=== PATIENT | female | born 1990 | race Caucasian/White ===

== ENCOUNTER 2016-11-11 22:44 | Emergency (ER) | payer OTHER ==
[~2016-11-11] VITALS: Ht 175.2 cm; Wt 83.9 kg
[~2016-11-11 22:44] MED LIST: ADDERALL5 MG PO; ANAPROX DS550 MG PO; ATARAX,VISTARIL10 MG PO; AVPAK AZITHROM250 M1 PO; BACTRIM DS 8001 TA1 PO; BUSPIRONE HCL7.5 MG PO; CIPRO250 MG PO; CIPRO500 MG PO; CIPROFLOXACIN500 MG PO; CLARITIN10 MG PO; CLINDAMYCIN HC300 MG PO; CYCLOBENZAPRINE5 M3 PO; DARVOCET N 1001 TAB PO; DOXYCYCLINE HY100 M3 PO; DOXYCYCLINE MO100 MG PO; DOXYCYCLINE100 M3 PO; EES400 MG PO; FLAGYL500 MG PO; FLONASE ALLERG9.9 ML NAS; HYDROCODON-ACE1 EACH PO; HYDROCODONE BIT1 T11 PO; IBUPROFEN600 MG PO; KLONOPIN1 M1 PO; LIDOCAINE VISC100 ML MM; MACROBID100 M1 PO; MULTIPLE VITAMI1 CAP PO; Motrin,Rufen800 MG PO; NAPROSYN500 MG PO; NORCO 5-325 TA1 EACH PO; OLANZAPINE15 M2 PO; PERCOCET 325 MG1 TA2 PO; PHENERGAN25 M1 PO; PHENERGAN25 M3 PO; PREDNISONE10 MG PO; PROTONIX40 MG PO; Peridex 473 ML473 ML PO; ROBITUSSIN AC 110 ML PO; SERTRALINE HYD100 MG PO; SERTRALINE HYDR50 MG PO; TRAMADOL HCL50 MG PO; TRAZODONE50 MG PO; ULTRAM50 MG PO; VALIUM2 MG PO; ZITHROMAX500 MG PO; ZOLOFT25 MG PO; ZYPREXA5 M1 PO
[2016-11-11] MEDS ORDERED: FLUCONAZOLE100 MG PO (22:59)
[2016-11-12] MEDS ORDERED: ULTRAM50 MG PO (00:11)
[2016-11-12] MEDS ORDERED: ZITHROMAX250 MG PO (00:11)
[2016-11-12] MEDS ORDERED: PREDNISONE20 M1 PO (00:15)
== END 2016-11-12 00:25 | disposition home or self-care (01) ==
LOC: ED 22:44
DX: B37.0 Candidal stomatitis (principal); R13.10 Dysphagia, unspecified; J02.9 Acute pharyngitis, unspecified; F17.200 Nicotine dependence, unspecified, uncomplicated; G89.29 Other chronic pain; R10.2 Pelvic and perineal pain; Z98.890 Other specified postprocedural states; Z90.89 Acquired absence of other organs; Z88.0 Allergy status to penicillin

== ENCOUNTER 2017-03-02 14:14 | Emergency (ER) | payer OTHER ==
[~2017-03-02] VITALS: Wt 84.8 kg
[~2017-03-02 14:14] MED LIST changes: +FLUCONAZOLE100 MG PO; +PREDNISONE20 M1 PO; +ZITHROMAX250 MG PO
[2017-03-02 15:38] LABS: BILIRUBIN NEGATIVE (NEGATIVE); BLOOD NEGATIVE (NEGATIVE); CLARITY CLEAR (CLEAR); COLOR YELLOW (YELLOW); GLUCOSE NEGATIVE (NEGATIVE); KETONE NEGATIVE (NEGATIVE); LEUKO ESTERASE 2+ (NEGATIVE); NITRITE NEGATIVE (NEGATIVE); PH 6.5 (5.0-9.0); PROTEIN NEGATIVE (NEGATIVE); UROBILINOGEN 0.2 E.U./dl (0.2-1.0)
[2017-03-02 16:03] LABS: RBC 0-2 rbc/hpf (0-2)
[2017-03-02 16:04] LABS: BACTERIA 2+; MUCOUS TRACE
[2017-03-02] MEDS ORDERED: CIPRO500 MG PO (16:29)
[2017-03-02] MEDS ORDERED: FLUCONAZOLE100 MG PO (16:29)
[2017-03-04 06:12] LABS: GONOCOCCUS BY NAA Negative (Negative); TRICHOMONAS VAGINALIS BY NAA Positive (Negative)
== END 2017-03-02 17:19 | disposition home or self-care (01) ==
LOC: ED 14:14
PROVIDERS: Registered Nurse
DX: N30.00 Acute cystitis without hematuria (principal); Z20.2 Contact with and (suspected) exposure to infections with a predominantly sexual mode of transmission; F17.200 Nicotine dependence, unspecified, uncomplicated; Z88.0 Allergy status to penicillin

== ENCOUNTER 2017-05-07 11:11 | Emergency (ER) | payer OTHER ==
[~2017-05-07] VITALS: Ht 175.2 cm; Wt 88.9 kg
[2017-05-07 12:09] LABS: BILIRUBIN NEGATIVE (NEGATIVE); BLOOD NEGATIVE (NEGATIVE); CLARITY CLEAR (CLEAR); COLOR YELLOW (YELLOW); GLUCOSE NEGATIVE (NEGATIVE); KETONE NEGATIVE (NEGATIVE); LEUKO ESTERASE NEGATIVE (NEGATIVE); NITRITE NEGATIVE (NEGATIVE); UROBILINOGEN 0.2 E.U./dl (0.2-1.0)
[2017-05-07 12:27] LABS: BACTERIA TRACE
[2017-05-07] MEDS ORDERED: Peridex 473 ML473 ML PO (12:44)
[2017-05-07] MEDS ORDERED: NAPROSYN500 MG PO (12:44)
== END 2017-05-07 13:31 | disposition home or self-care (01) ==
LOC: ED 11:11
PROVIDERS: Nurse Practitioner Family
DX: K08.89 Other specified disorders of teeth and supporting structures (principal); R30.0 Dysuria; R03.0 Elevated blood-pressure reading, without diagnosis of hypertension; F17.200 Nicotine dependence, unspecified, uncomplicated; Z88.0 Allergy status to penicillin

== ENCOUNTER 2017-06-24 14:49 | Emergency (ER) | payer OTHER ==
[~2017-06-24] VITALS: Ht 175.2 cm; Wt 104.3 kg
[2017-06-24] MEDS ORDERED: MEDROL DOSEPAK4 MG PO (16:13)
[2017-06-24] MEDS ORDERED: ROBAXIN500 M1 PO (16:13)
== END 2017-06-24 16:28 | disposition home or self-care (01) ==
LOC: ED 14:49
DX: M54.16 Radiculopathy, lumbar region (principal); F17.200 Nicotine dependence, unspecified, uncomplicated; Z88.0 Allergy status to penicillin

== ENCOUNTER 2017-08-07 20:04 | Emergency (ER) | payer OTHER ==
[~2017-08-07] VITALS: Ht 175.2 cm; Wt 105.7 kg
[~2017-08-07 20:04] MED LIST changes: +MEDROL DOSEPAK4 MG PO; +ROBAXIN500 M1 PO
[2017-08-07] MEDS ORDERED: ADDERALL XR 3030 MG PO (20:14)
[2017-08-07] MEDS ORDERED: DIAZEPAM10 M1 PO (20:15)
[2017-08-07] MEDS ORDERED: KETOROLAC10 MG PO (21:14)
[2017-08-07] MEDS ORDERED: Orphenadrine C100 MG PO (21:14)
== END 2017-08-07 21:41 | disposition home or self-care (01) ==
LOC: ED 20:04
DX: M75.102 Unspecified rotator cuff tear or rupture of left shoulder, not specified as traumatic (principal); F17.200 Nicotine dependence, unspecified, uncomplicated; Z79.899 Other long term (current) drug therapy; Z88.0 Allergy status to penicillin; Z91.041 Radiographic dye allergy status

== ENCOUNTER 2017-09-21 15:08 | Emergency (ER) | payer OTHER ==
[~2017-09-21] VITALS: Ht 175.2 cm; Wt 89.8 kg
[~2017-09-21 15:08] MED LIST changes: +ADDERALL XR 3030 MG PO; +DIAZEPAM10 M1 PO; +KETOROLAC10 MG PO; +Orphenadrine C100 MG PO
[2017-09-21 15:36] LABS: BILIRUBIN NEGATIVE (NEGATIVE); BLOOD 2+ (NEGATIVE); CLARITY CLEAR (CLEAR); COLOR YELLOW (YELLOW); GLUCOSE NEGATIVE (NEGATIVE); KETONE TRACE (NEGATIVE); LEUKO ESTERASE NEGATIVE (NEGATIVE); NITRITE NEGATIVE (NEGATIVE); PH 5.5 (5.0-9.0); SPECIFIC GRAVITY 1.025 (1.005-1.030); UROBILINOGEN 0.2 E.U./dl (0.2-1.0)
[2017-09-21 15:44] LABS: BASO # 0.1 10*3/uL (0.0-0.1); BASO % 0.7 % (0.0-1.0); EOS # 0.3 10*3/uL (0.0-0.4); HEMATOCRIT 44.5 % (37.0-47.0); HEMOGLOBIN 14.4 g/dl (12.0-16.0); LYMPH # 1.6 10*3/uL (1.3-4.4); LYMPH % 20.2 % (27.0-41.0); MEAN CELL VOLUME 82.1 fl (81.0-99.0); MEAN CORPUSCULAR HGB 26.6 pg (27.0-31.0); MEAN CORPUSCULAR HGB CONC 32.4 g/dl (33.0-37.0); MEAN PLATELET VOLUME 9.3 fl (9.6-12.3); MONO # 0.5 10*3/uL (0.1-1.0); MONO % 5.6 % (3.0-9.0); NEUT # 5.5 10*3/uL (2.3-7.9); NEUT % 69.1 % (47.0-73.0); PLATELET COUNT AUTOMATED 227 10*3/uL (130-400); RED BLOOD COUNT 5.42 10*6/uL (4.10-5.10); RED CELL DISTRI WIDTH 14.5 % (0-14.5)
[2017-09-21 15:47] LABS: BACTERIA 1+; URIC ACID CRYSTALS TR; WBC 0-2 wbc/hpf (0-5)
[2017-09-21 15:54] LABS: ALBUMIN 3.7 gm/dl (3.1-4.5); ALKALINE PHOSPHATASE 122 U/L (45-117); BUN 8 mg/dl (7-24); CHLORIDE 107 mmol/L (98-107); CREATININE 0.83 mg/dL (0.55-1.02); SGOT/AST 23 IU/L (3-35); SGPT/ALT 59 U/L (12-78); SODIUM 141 mmol/L (136-145); TOTAL PROTEIN 7.4 gm/dL (6.4-8.2)
== END 2017-09-21 16:53 | disposition home or self-care (01) ==
LOC: ED 15:08
PROVIDERS: Physician Assistant
DX: N93.9 Abnormal uterine and vaginal bleeding, unspecified (principal); F17.200 Nicotine dependence, unspecified, uncomplicated; Z88.0 Allergy status to penicillin; Z79.899 Other long term (current) drug therapy

== ENCOUNTER 2017-11-30 12:19 | Emergency (ER) | payer OTHER ==
[~2017-11-30] VITALS: Ht 175.2 cm; Wt 109.8 kg
[2017-11-30 12:45] LABS: BASO % 0.4 % (0.0-1.0); EOS # 0.3 10*3/uL (0.0-0.4); EOS % 3.4 % (1.0-4.0); HEMATOCRIT 42.2 % (37.0-47.0); HEMOGLOBIN 13.5 g/dl (12.0-16.0); LYMPH # 1.7 10*3/uL (1.3-4.4); LYMPH % 18.6 % (27.0-41.0); MEAN CELL VOLUME 82.1 fl (81.0-99.0); MEAN CORPUSCULAR HGB 26.3 pg (27.0-31.0); MEAN PLATELET VOLUME 9.3 fl (9.6-12.3); MONO # 0.5 10*3/uL (0.1-1.0); MONO % 5.4 % (3.0-9.0); NEUT # 6.5 10*3/uL (2.3-7.9); NEUT % 71.8 % (47.0-73.0); PLATELET COUNT AUTOMATED 243 10*3/uL (130-400); RED BLOOD COUNT 5.14 10*6/uL (4.10-5.10); RED CELL DISTRI WIDTH 14.2 % (0-14.5); WHITE BLOOD COUNT 9.1 10*3/uL (4.8-10.8)
[2017-11-30 13:00] LABS: ALBUMIN 3.6 gm/dl (3.1-4.5); ALKALINE PHOSPHATASE 125 U/L (45-117); BUN 11 mg/dl (7-24); CHLORIDE 104 mmol/L (98-107); CREATININE 0.78 mg/dL (0.55-1.02); LIPASE 102 U/L (73-393); POTASSIUM 3.9 mmol/L (3.5-5.1); SGOT/AST 44 IU/L (3-35); SGPT/ALT 82 U/L (12-78); SODIUM 139 mmol/L (136-145); TOTAL PROTEIN 7.3 gm/dL (6.4-8.2)
[2017-11-30 13:02] LABS: B-hCG (QUALITATIVE) NEGATIVE (NEGATIVE)
== END 2017-11-30 13:30 | disposition home or self-care (01) ==
LOC: ED 12:19
PROVIDERS: Emergency Medicine
DX: R74.0 Nonspecific elevation of levels of transaminase and lactic acid dehydrogenase [LDH] (principal); R10.31 Right lower quadrant pain; R11.10 Vomiting, unspecified; R10.32 Left lower quadrant pain; Z88.0 Allergy status to penicillin; Z79.899 Other long term (current) drug therapy

== ENCOUNTER 2018-02-23 18:59 | Emergency (ER) | payer OTHER ==
[~2018-02-23] VITALS: Ht 175.2 cm; Wt 107.0 kg
[2018-02-23 19:31] LABS: BASO % 0.4 % (0.0-1.0); EOS # 0.4 10*3/uL (0.0-0.4); EOS % 3.3 % (1.0-4.0); HEMATOCRIT 44.4 % (37.0-47.0); HEMOGLOBIN 14.1 g/dl (12.0-16.0); LYMPH # 1.8 10*3/uL (1.3-4.4); LYMPH % 16.6 % (27.0-41.0); MEAN CELL VOLUME 81.6 fl (81.0-99.0); MEAN CORPUSCULAR HGB 25.9 pg (27.0-31.0); MEAN CORPUSCULAR HGB CONC 31.8 g/dl (33.0-37.0); MEAN PLATELET VOLUME 9.1 fl (9.6-12.3); MONO # 0.6 10*3/uL (0.1-1.0); MONO % 5.5 % (3.0-9.0); NEUT # 7.9 10*3/uL (2.3-7.9); NEUT % 73.8 % (47.0-73.0); PLATELET COUNT AUTOMATED 239 10*3/uL (130-400); RED BLOOD COUNT 5.44 10*6/uL (4.10-5.10); RED CELL DISTRI WIDTH 14.3 % (0-14.5); WHITE BLOOD COUNT 10.7 10*3/uL (4.8-10.8)
[2018-02-23 19:47] LABS: ALBUMIN 3.9 gm/dl (3.1-4.5); ALKALINE PHOSPHATASE 131 U/L (45-117); BUN 11 mg/dl (7-24); CHLORIDE 107 mmol/L (98-107); CREATININE 0.72 mg/dL (0.55-1.02); POTASSIUM 4.2 mmol/L (3.5-5.1); SGOT/AST 53 IU/L (3-35); SGPT/ALT 125 U/L (12-78); SODIUM 139 mmol/L (136-145); TOTAL PROTEIN 7.6 gm/dL (6.4-8.2)
[2018-03-20] MEDS ORDERED: DIFLUCAN150 MG PO (11:33)
== END 2018-02-23 20:45 | disposition home or self-care (01) ==
LOC: ED 18:59
PROVIDERS: Student in an Organized Health Care Education/Training Program
DX: R51 Headache (principal); R42 Dizziness and giddiness; R11.0 Nausea; R63.0 Anorexia; F17.210 Nicotine dependence, cigarettes, uncomplicated; Z88.0 Allergy status to penicillin; Z79.899 Other long term (current) drug therapy

== ENCOUNTER 2019-08-30 20:09 | Emergency (ER) | payer SELFPAY ==
[~2019-08-30] VITALS: Ht 175.2 cm; Wt 114.3 kg
[~2019-08-30 20:09] MED LIST changes: +DIFLUCAN150 MG PO
[2019-08-30] MEDS ORDERED: PREDNISONE20 M1 PO (21:32)
[2019-08-30] MEDS ORDERED: ZITHROMAX250 MG PO (21:32)
== END 2019-08-30 21:34 | disposition home or self-care (01) ==
LOC: ED 20:09
DX: J40 Bronchitis, not specified as acute or chronic (principal); R11.2 Nausea with vomiting, unspecified; Z88.0 Allergy status to penicillin; Z79.899 Other long term (current) drug therapy

== ENCOUNTER 2023-12-20 23:38 | Emergency (ER) | payer OTHER ==
[~2023-12-20] VITALS: Ht 162.5 cm; Wt 108.9 kg
[2023-12-21] MEDS ORDERED: SODIUM CHLORIDE 0.9% 1,000 ML IV ONE (00:25)
[2023-12-21] MEDS ORDERED: Ondansetron Hydrochloride 4 MG/2 ML VIAL IV ONE (00:25)
[2023-12-21] MEDS ORDERED: Meclizine Hydrochloride 25 MG TAB PO ONE (00:25)
[2023-12-21] MEDS ORDERED: Ketorolac Tromethamine 30 MG/ML VIAL IV ONE (01:55)
[2023-12-21] MEDS ORDERED: MEDI-MECLIZINE25 MG PO (03:23)
== END 2023-12-21 03:31 | disposition home or self-care (01) ==
LOC: ED 23:38
DX: R42 Dizziness and giddiness (principal); H53.8 Other visual disturbances; F90.9 Attention-deficit hyperactivity disorder, unspecified type; F32.A Depression, unspecified; Z88.0 Allergy status to penicillin; Z91.041 Radiographic dye allergy status; Z98.890 Other specified postprocedural states; Z90.49 Acquired absence of other specified parts of digestive tract

== ENCOUNTER 2024-05-11 16:42 | Emergency (ER) | payer OTHER ==
[~2024-05-11] VITALS: Wt 113.4 kg
[~2024-05-11 16:42] MED LIST changes: +MEDI-MECLIZINE25 MG PO
[2024-05-11] MEDS ORDERED: diphenhydrAMINE hydrochloride 50 MG/ML VIAL IV ONE (17:55)
[2024-05-11] MEDS ORDERED: Ondansetron Hydrochloride 4 MG/2 ML VIAL IV ONE (17:55)
[2024-05-11] MEDS ORDERED: Ketorolac Tromethamine 30 MG/ML VIAL IV ONE (17:55)
[2024-05-11] MEDS ORDERED: Dexamethasone Sodium Phospha 20 MG/5 ML VIAL IV ONE (19:50)
[2024-05-11] MEDS ORDERED: Motrin,Rufen800 MG PO (20:18)
== END 2024-05-11 20:33 | disposition home or self-care (01) ==
LOC: ED 16:42
DX: G43.909 Migraine, unspecified, not intractable, without status migrainosus (principal); F32.A Depression, unspecified; F90.9 Attention-deficit hyperactivity disorder, unspecified type; R11.0 Nausea; Z88.0 Allergy status to penicillin; Z91.041 Radiographic dye allergy status; Z98.890 Other specified postprocedural states; Z90.49 Acquired absence of other specified parts of digestive tract

== ENCOUNTER 2024-10-10 20:01 | Emergency (ER) | payer OTHER ==
[~2024-10-10] VITALS: Wt 108.9 kg
[2024-10-10] MEDS ORDERED: methylPREDNISolone sod succ 125 MG VIAL IM ONE (20:15)
[2024-10-10] MEDS ORDERED: MEDROL DOSEPAK4 MG PO (22:05)
== END 2024-10-10 22:38 | disposition home or self-care (01) ==
LOC: ED 20:01
DX: J06.9 Acute upper respiratory infection, unspecified (principal); R07.81 Pleurodynia; Z20.822 Contact with and (suspected) exposure to COVID-19; F90.9 Attention-deficit hyperactivity disorder, unspecified type; F32.A Depression, unspecified; Z88.0 Allergy status to penicillin; Z91.041 Radiographic dye allergy status; Z98.890 Other specified postprocedural states; Z90.49 Acquired absence of other specified parts of digestive tract

== ENCOUNTER → 2024-11-07 | Outpatient (CLI) | payer OTHER ==
[2024-11-07 10:12] LABS: HEMATOCRIT 46.4 % (37.0-47.0); MEAN CELL VOLUME 83.3 fl (81.0-99.0); MEAN CORPUSCULAR HGB CONC 31.3 g/dl (33.0-37.0); MEAN PLATELET VOLUME 8.8 fl (9.6-12.3); RED BLOOD COUNT 5.57 10*6/uL (4.10-5.10); RED CELL DISTRI WIDTH 13.1 % (0-14.5); WHITE BLOOD COUNT 6.8 10*3/uL (4.8-10.8)
[2024-11-07 10:44] LABS: ALKALINE PHOSPHATASE 102 U/L (46-116); BUN 9 mg/dl (9-23); CHLORIDE 104 mmol/L (98-107); CHOLESTEROL 211 mg/dL (<200); CPK 149 U/L (34-171); FREE T4 1.43 ng/dl (0.89-1.76); LDL CHOLESTEROL 141 mg/dL (9-159); SGPT/ALT 96 U/L (5-49); TOTAL PROTEIN 7.4 gm/dL (6.0-8.0); TRIGLYCERIDES 148 mg/dl (<150)
[2024-11-07 10:49] LABS: VITAMIN D, 25-HYDROXY 30.9 ng/mL (30-100)
[2024-11-10 08:12] LABS: TESTOS, FREE 4.7 pg/mL (0.0-4.2)
== END | disposition home or self-care (01) ==
LOC: LAB 09:54
PROVIDERS: ATTEND Family Medicine
DX: Z13.220 Encounter for screening for lipoid disorders (principal); Z00.00 Encounter for general adult medical examination without abnormal findings; L68.0 Hirsutism; E74.9 Disorder of carbohydrate metabolism, unspecified; E55.9 Vitamin D deficiency, unspecified; R53.83 Other fatigue

== ENCOUNTER → 2024-11-22 | Outpatient (CLI) | payer OTHER | END | disposition home or self-care (01) | LOC: MAMMO 11-16 08:00 → US 11-16 08:30 → MAMMO 12:49 | PROVIDERS: ATTEND Family Medicine | DX: N93.8 Other specified abnormal uterine and vaginal bleeding (principal); N64.89 Other specified disorders of breast; Z90.710 Acquired absence of both cervix and uterus ==

== ENCOUNTER 2025-03-26 17:39 | Emergency (ER) | payer OTHER ==
[~2025-03-26] VITALS: Ht 175.2 cm; Wt 110.4 kg
[2025-03-26] MEDS ORDERED: TOPIRAMATE25 M3 PO (17:57)
[2025-03-26] MEDS ORDERED: Lidocaine Hydrochloride 2% 10 ML AMP SC ONE (18:15)
[2025-03-26] MEDS ORDERED: Bacitracin Zinc 14 GM TUBE T ONE (18:15)
[2025-03-26] MEDS ORDERED: Tdap Vaccine 0.5 ML SYR (Adult Vaccine) IM ONE (18:15)
[2025-03-26] MEDS ORDERED: ACETAMINOPHEN 325 MG TAB PO ONE (18:20)
[2025-03-26 19:08] LABS: BASO # 0.0 10*3/uL (0.0-0.1); BASO % 0.5 % (0.0-1.0); EOS # 0.1 10*3/uL (0.0-0.4); EOS % 1.6 % (1.0-4.0); MEAN CELL VOLUME 83.6 fl (81.0-99.0); MEAN CORPUSCULAR HGB 26.2 pg (27.0-31.0); MEAN PLATELET VOLUME 8.7 fl (9.6-12.3); MONO # 0.5 10*3/uL (0.1-1.0); MONO % 5.7 % (3.0-9.0); NEUT # 6.4 10*3/uL (2.3-7.9); NEUT % 76.5 % (47.0-73.0); NUCLEATED RED BLOOD CELL 0.0 % (0.0-0.0); NUCLEATED RED BLOOD CELL 0.0 10*3/uL (0.0-0.0); PLATELET COUNT AUTOMATED 277 10*3/uL (130-400); RED CELL DISTRI WIDTH 13.7 % (0-14.5)
[2025-03-26 19:31] LABS: BUN 9 mg/dl (9-23); SGPT/ALT 46 U/L (5-49)
[2025-03-26 20:20] LABS: BILIRUBIN Negative (Negative); BLOOD Negative (Negative); CLARITY Clear (Clear); COLOR Yellow (Yellow); KETONE Negative (Negative); LEUKO ESTERASE Negative (Negative); NITRITE Negative (Negative); PH 7.5 (4.5-8.0); SPECIFIC GRAVITY 1.015 (1.001-1.030); UROBILINOGEN 0.2 E.U./dl (0.0-1.0)
[2025-03-26 20:27] LABS: BACTERIA 2+
[2025-03-26] MEDS ORDERED: CEPHALEXIN500 M1 PO (21:38)
== END 2025-03-26 22:15 | disposition home or self-care (01) ==
LOC: ED 17:39
PROVIDERS: Nurse Practitioner Family
DX: S21.112A Laceration without foreign body of left front wall of thorax without penetration into thoracic cavity, initial encounter (principal); S16.1XXA Strain of muscle, fascia and tendon at neck level, initial encounter; S80.212A Abrasion, left knee, initial encounter; S09.90XA Unspecified injury of head, initial encounter; F32.A Depression, unspecified; F90.9 Attention-deficit hyperactivity disorder, unspecified type; Z90.49 Acquired absence of other specified parts of digestive tract; Z88.0 Allergy status to penicillin; Z88.8 Allergy status to other drugs, medicaments and biological substances; Z90.722 Acquired absence of ovaries, bilateral; Z98.890 Other specified postprocedural states; V43.52XA Car driver injured in collision with other type car in traffic accident, initial encounter; Y93.89 Activity, other specified; Y92.410 Unspecified street and highway as the place of occurrence of the external cause; Y99.8 Other external cause status

== ENCOUNTER 2025-04-05 12:42 | Emergency (ER) | payer OTHER ==
[~2025-04-05] VITALS: Ht 175.2 cm
[~2025-04-05 12:42] MED LIST changes: +CEPHALEXIN500 M1 PO; +TOPIRAMATE25 M3 PO
== END 2025-04-05 13:33 | disposition home or self-care (01) ==
LOC: ED 12:42
DX: S21.112D Laceration without foreign body of left front wall of thorax without penetration into thoracic cavity, subsequent encounter (principal); Z48.02 Encounter for removal of sutures; F32.A Depression, unspecified; F90.9 Attention-deficit hyperactivity disorder, unspecified type; Z88.0 Allergy status to penicillin; Z91.041 Radiographic dye allergy status; Z79.899 Other long term (current) drug therapy; Z98.890 Other specified postprocedural states; V89.2XXD Person injured in unspecified motor-vehicle accident, traffic, subsequent encounter